=== PATIENT | male | born 1950 | race Caucasian/White ===

== ENCOUNTER → 2016-07-07 | Outpatient (CLI) | payer MEDICARE, OTHER ==
[~2016-07-07] MED LIST: ADALAT CC PO; AMARYL PO; INVOKANA300 MG PO; JANUVIA PO; JARDIANCE25 MG PO; LIPITOR40 MG PO; MIRTAZAPINE30 MG PO; NIFEDIPINE XR PO; OMEPRAZOLE40 M1 PO; PROPRANOLOL HCL40 MG PO; SALAGEN5 M1 PO; TRAZODONE HCL300 MG PO
--- NOTE | ~2016-07-07 | CT2 ---
[facility] A Service of [facility] [place] RADIOLOGY TEXT RESULTS PATIENT: JUNIOR Estevan CACERES LOCATION: [facility] : 50 UNIT #: [id number] AGE: [address]: Chino Warren MD SEX: M ORDER DR: [id number] [facility] [address]. [place], [place] [address] [id number] O MR#: [id number] Acc #: [id number] NAME: JUNIOR NICKI : 1950 SEX: M STUDY DATE/TIME: 07/07/2016 10:05 UNIT: [facility] ROOM: STUDY DESCRIPTION: CT Abd and Pelv W Cont Attending Physician: Chino Warren M.D. Referring Physician: Chino Warren M.D. Ordering Physician: Chino Warren M.D. Primary Care Physician: Hira Vee M.D. MEDICAL IMAGING REPORT This report is preliminary unless electronic signature is present EXAM CT abdomen and pelvis INDICATION Unexplained weight loss. 4-month duration. Intermittent diarrhea. Low back pain. TECHNIQUE CT of the abdomen and pelvis with p.o. and IV contrast (100 mL Isovue-370 IV contrast). Coronal and sagittal reconstructions were obtained. This CT examination was performed with one or more of the following radiation dose reduction techniques: automatic exposure control, adjustment of mA and/or kV according to patient size, and iterative reconstruction. COMPARISON None available. FINDINGS ABDOMEN: Diffusely diminished attenuation throughout the hepatic parenchyma is indicative of hepatic steatosis. No hepatic mass. The pancreas, spleen, adrenal glands, and kidneys are within normal limits. There is a 5 mm nonobstructing calculus in the mid left kidney. There are 2 nonobstructing right renal calculi. The bowel is not dilated. There are a few left-sided colonic diverticula. No diverticulitis. The appendix is not clearly identified and may be surgically absent. The abdominal aorta is normal in caliber. PELVIS: Bladder is unremarkable. No enlarged pelvic or inguinal lymph nodes. There is a small umbilical hernia. [facility] A Service of [facility] RADIOLOGY TEXT RESULTS PATIENT: JUNIOR Estevan CACERES LOCATION: [facility] #: [id number] : [birth year] UNIT #: [id number] AGE: [address]: Chino Warren MD SEX: M ORDER DR: No acute osseous abnormalities. There is bilateral L5 pars defects however no spondylolisthesis. IMPRESSION 1. Diverticulosis. 2. Nonobstructing renal calculi. 3. Hepatic steatosis. Dictated by... Quoc Collins M.D. THIS IS AN ELECTRONICALLY VERIFIED REPORT Quoc Collins M.D. at 07/07/2016 4:53 PM ARIANE/nilam TD: 07/07/2016 14:25 JOB #: [id number] MEDICAL IMAGING REPORT Page 1 of 1 COPY
[2016-07-07 08:46] LABS: HEMATOCRIT 45.3 % (38.0-50.0); HEMOGLOBIN 15.1 gm/dL (13.0-16.0); MEAN CELL VOLUME 89.2 FL (83-96); MEAN CORPUSCULAR HEMOGLOBIN 29.6 PG (28-34); MEAN CORPUSCULAR HGB CONC 33.2 g/dL (30-36); MEAN PLATELET VOLUME 7.5 FL (6.5-11.5); RED BLOOD COUNT 5.08 X10e (3.90-5.60); RED CELL DISTRIBUTION WIDTH 13.2 % (11.0-15.5)
[2016-07-07 09:04] LABS: ALBUMIN SERUM 4.2 g/dL (3.5-5.0); BILIRUBIN,TOTAL 0.5 mg/dL (0.2-2.0); BUN/CREATININE RATIO 17.14; CALCIUM SERUM 9.3 mg/dL (8.4-10.2); CREATININE SERUM 0.7 mg/dL (0.6-1.4); GLOM FILT RATE Estimated 99.1 mL/min (>60); POTASSIUM 4.7 mmol/L (3.5-5.1); PROTEIN TOTAL SERUM 7.9 g/dL (6.0-8.3)
== END | disposition home or self-care (01) ==
LOC: CCAT 07-01 10:00
PROVIDERS: Internal Medicine
DX: R63.4 Abnormal weight loss (principal); N20.0 Calculus of kidney; K76.0 Fatty (change of) liver, not elsewhere classified; K57.30 Diverticulosis of large intestine without perforation or abscess without bleeding
CPT/HCPCS: 36415; 74177; 80053; 85027; Q9967

== ENCOUNTER → 2016-08-06 | Day surgery (SDC) | payer MEDICARE, OTHER ==
--- NOTE | ~2016-08-06 | OR ---
Unit #: [id number] #: [id number] Patient: JUNIOR Esetvan CACERES [id number] [address] [address] [id number] O MR#: [id number] NAME: JUNIOR Estevan CACERES. ROOM: Date of Procedure: 08/06/2016 Admission Date: 08/06/2016 Surgeon: Chino Warren M.D. : 1950 Attending Physician: Chino Warren M.D. Primary Care Physician: Hira Vee M.D. OPERATIVE REPORT PROCEDURES PERFORMED Colonoscopy with snare polypectomy to cecum. INDICATIONS FOR PROCEDURE A 65-year-old gentleman with history of large polyp with high-grade dysplasia, now with unexplained 50-pound weight loss, undergoing repeat evaluation. MEDICATIONS Monitored anesthesia. POSTOPERATIVE FINDINGS 1. Three polyps, transverse colon, 4 to 6 mm, snared and sent for pathology. 2. Rest of the exam to cecum was normal. 3. Prep was good. PLAN Repeat colonoscopy in 3 years. DESCRIPTION OF PROCEDURE The patient was explained of the procedure, risks, and benefits along with the risks and benefits of anesthesia. He was brought to the endoscopy room. Propofol anesthesia was given. Rectal exam was done, which was normal. Colonoscope was lubricated, passed up the rectum, advanced under direct vision all the way to the cecum. Cecum was identified by ileocecal valve and appendiceal orifice. I then started to pull the scope out carefully looking. Polyps seen had been described. I retroflexed in the rectum. Small hemorrhoids seen. The scope was gently pulled out. He tolerated it well. No major complications were seen. Dictated by... Adonis Cooper/thien TD: 08/07/2016 13:40 JOB #: [id number] Unit #: [id number] #: [id number] Patient: JUNIOR Estevan CACERES OPERATIVE REPORT Page 1 of 1 X Chino Warren MD PROCEDURE OPERATIVE NOTE
== END | disposition home or self-care (01) ==
LOC: COPS 09:45
DX: D12.3 Benign neoplasm of transverse colon (principal); K64.9 Unspecified hemorrhoids; K57.92 Diverticulitis of intestine, part unspecified, without perforation or abscess without bleeding; K21.9 Gastro-esophageal reflux disease without esophagitis; E10.9 Type 1 diabetes mellitus without complications; I10 Essential (primary) hypertension; N40.0 Benign prostatic hyperplasia without lower urinary tract symptoms; E78.5 Hyperlipidemia, unspecified; M19.90 Unspecified osteoarthritis, unspecified site; Z79.899 Other long term (current) drug therapy; Z86.010 Personal history of colon polyps; Z98.890 Other specified postprocedural states
CPT/HCPCS: 82947; 88305